=== PATIENT | female | born 1995 | race Caucasian/White ===

== ENCOUNTER 2019-03-27 17:20 | Emergency (ER) | payer OTHER ==
[~2019-03-27] VITALS: Ht 157.5 cm; Wt 48.1 kg
[2019-03-27 17:34] VITALS: Ht 157.5 cm; Wt 48.1 kg
[2019-03-27 21:30] VITALS: BP 116/81
== END 2019-03-27 21:30 | disposition home or self-care (01) ==
LOC: ED 17:20
DX: N75.0 Cyst of Bartholin's gland (principal)
CPT/HCPCS: J2001